=== PATIENT | male | born 1965 | race African-American/Black ===

== ENCOUNTER 2018-10-18 20:44 | Inpatient (IN) | payer SELFPAY ==
[2018-10-18 21:13] LABS: Bilirubin Negative (Negative); Blood, Urine Moderate (Negative); Clarity CLEAR (Clear); Glucose, Urine (Dipstick) >=1000 mg/dL (Negative); Leukocyte Negative (Negative); Nitrite Negative (Negative); Protein, Urine (Dipstick) Trace mg/dL (Neg-Trace); Specific Gravity, Urine 1.028 (1.002-1.036); Urobilinogen 0.2 mg/dL (0.2-1.0)
[2018-10-18 21:15] LABS: Bacteria/HPF None Seen HPF (None Seen); Hyaline Casts/LPF 0-3 HYALINE CAST LPF (0-3 Hyaline); Pathc Cast-AUWi Flag 0.13 (0-2.49); RBC/HPF 0-3 HPF (0-3); Squamous Epithelial None Seen HPF (0-3); WBC/HPF None Seen HPF (0-3)
[2018-10-18] MEDS ORDERED: Acetaminophen 650 MG Suppository ONE (21:17)
[2018-10-18 21:23] LABS: Amphetamine Not Detected (NotDetected); Barbiturates Screen Not Detected (NotDetected); Benzodiazepine Screen Not Detected (NotDetected); Cocaine Metabolite Screen Not Detected (NotDetected); Medtox Control Line Valid? VALID (VALID); Medtox Reader # READER 1; Methadone Not Detected (NotDetected); Methamphetamine Not Detected (NotDetected); Opiate Screen Not Detected (NotDetected); Oxycodone Screen Not Detected (NotDetected); Phencyclidine (PCP) Not Detected (NotDetected); THC/Cannabinoid Screen Not Detected (NotDetected); Tricyclic Screen Not Detected (NotDetected)
--- NOTE | 2018-10-18 21:40 | CT ---
CT brain noncontrast: HISTORY: Syncope and altered mental status in 53-year-old male FINDINGS: There is no evidence of acute intra-axial or extra-axial hemorrhage. There is no midline shift or any other mass effect. There is no extra-axial fluid collection. There is no evidence of obstructive hydrocephalus. Calvarium is intact. IMPRESSION: No acute intracranial findings.
[2018-10-18 21:41] LABS: Acetaminophen Less than 6.0 mcg/mL (10.0-30.0); Alcohol Less than 10 mg/dL (Less than 10); Salicylate Less than 8.0 mg/dL (15.0-30.0)
[2018-10-18 21:42] LABS: Hemoglobin 14.4 g/dL (14.0-18.0); Mean Corpuscular HGB CONC 29.5 g/dL (32.0-36.0); Mean Corpuscular Hemoglobin 24.8 pg (27.0-31.0); Mean Corpuscular Volume 84.1 fL (78.0-98.0); Platelet Count 473 thou/uL (130-400); RBC Distribution Width 16.9 % (11.5-14.5); White Blood Cell (WBC) Count 23.3 thou/uL (4.8-10.8)
[2018-10-18 21:44] LABS: ALT (SGPT) 23 U/L (8-55); AST (SGOT) 13 U/L (5-34); Albumin 3.9 g/dL (3.5-5.0); Alkaline Phosphatase 149 U/L (40-150); Anion Gap 34 mmol/L (10-20); BUN (Urea Nitrogen) 61 mg/dL (8.4-25.7); Bilirubin, Total 0.6 mg/dL (0.2-1.2); CK (CPK) 354 U/L (30-200); Calc. Creatinine Clearance 0 mL/min (70-130); Calcium 11.6 mg/dL (7.8-10.44); Carbon Dioxide 16 mmol/L (22-29); Chloride 99 mmol/L (98-107); Estimated GFR-MDRD 24; Globulin 5.1 g/dL (2.4-3.5); Potassium 4.8 mmol/L (3.5-5.1); Sodium 144 mmol/L (136-145)
[2018-10-18 21:47] LABS: Band 2 % (5-11); Lymphocytes 3 % (21-51); MDiff Complete? YES; Monocytes 3 % (0-10); Myelocyte 1 % (0-0); Neutrophil 91 % (42-75); Platelet Morphology Comment Appears Increased
[2018-10-18] MEDS ORDERED: Piperacillin/Tazobactam 4.5 GM VIAL ONE (21:47)
[2018-10-18 21:48] LABS: Glucose 1150 mg/dL (70-105)
--- NOTE | 2018-10-18 21:54 | RAD ---
CHEST ONE VIEW: 10/18/18 HISTORY: Altered mental status. FINDINGS: Heart size is within normal limits. The lungs are clear. No confluent pneumonia, overt edema, or pleu ral effusion. IMPRESSION: No acute intrathoracic disease. POS: RRE
[2018-10-18 21:59] LABS: CKMB 2.9 ng/mL (0-6.6)
[2018-10-18] MEDS ORDERED: HUMULIN R 100 UNITS in Sodium Chloride 0.9% 100 ML IVPB SCH ×2 (22:00→23:29)
[2018-10-18] MEDS ORDERED: Senokot S 8.6-50 MG TAB PO PRN (23:29)
[2018-10-18] MEDS ORDERED: Loperamide HCl 2 MG CAP PO PRN (23:29)
[2018-10-18] MEDS ORDERED: D5 1/2 NS w/20 mEq KCL 1,000 ML IV PRN (23:29)
[2018-10-18] MEDS ORDERED: Acetaminophen 325 MG TAB PO PRN (23:29)
[2018-10-18] MEDS ORDERED: Sodium Chloride 0.9% 1,000 ML IV PRN ×4 (23:29)
[2018-10-18] MEDS ORDERED: Dextrose 5 %-0.45 % NaCl 1,000 ML IV PRN (23:29)
[2018-10-18] MEDS ORDERED: HYDROcodone/Acetaminophen 5/325 mg Tablet PO PRN (23:29)
[2018-10-18] MEDS ORDERED: Ondansetron ODT 4 MG TAB PO PRN (23:29)
[2018-10-18] MEDS ORDERED: NS 0.9% w/ 20 MEQ KCL 1,000 ML IV PRN ×2 (23:29)
[2018-10-18] MEDS ORDERED: Ondansetron PF 4 MG/2 ML Vial IVP PRN (23:29)
[2018-10-18] MEDS ORDERED: CCU Electrolyte Replacement 1 EACH IVPB ONE (23:29)
[2018-10-18] MEDS ORDERED: Bisacodyl 5 MG TAB PO PRN (23:29)
[2018-10-19] MEDS ORDERED: Potassium Chloride 40 MEQ in Sodium Chloride 0.9% 250 ML 250 ML IVPB PRN (00:02)
[2018-10-19] MEDS ORDERED: Potassium Phosphate 12 MMOL in Sodium Chloride 0.9% 250 ML 250 ML IV PRN (00:02)
[2018-10-19] MEDS ORDERED: PHOS-NAK 1 PKT PACK PO PRN ×2 (00:02)
[2018-10-19] MEDS ORDERED: Potassium Chloride 20 MEQ TAB PO PRN (00:02)
[2018-10-19] MEDS ORDERED: Potassium Chloride 40 MEQ in Premix Bag 1 BAG IVPB PRN (00:02)
[2018-10-19] MEDS ORDERED: Magnesium 2 GM/50 ML 2 GM in Premix Bag 1 BAG IVPB PRN (00:02)
[2018-10-19] MEDS ORDERED: Potassium Phosphate 15 MMOL in Sodium Chloride 0.9% 250 ML 250 ML IV PRN (00:02)
[2018-10-19] MEDS ORDERED: Potassium Phosphate 9 MMOL in Sodium Chloride 0.9% 100 ML IVPB PRN (00:02)
[2018-10-19] MEDS ORDERED: Magnesium Oxide 400 MG TAB PO PRN ×2 (00:02)
[2018-10-19 00:08] LABS: Anion Gap 33 mmol/L (10-20); BUN (Urea Nitrogen) 54 mg/dL (8.4-25.7); Calc. Creatinine Clearance 0 mL/min (70-130); Calcium 10.9 mg/dL (7.8-10.44); Carbon Dioxide 13 mmol/L (22-29); Chloride 112 mmol/L (98-107); Estimated GFR-MDRD 30; Sodium 153 mmol/L (136-145)
--- NOTE | 2018-10-19 00:11 | HP ---
PRIMARY CARE PHYSICIAN: [facility]. REASON FOR ADMISSION: Acute metabolic encephalopathy, DKA, acute kidney failure. HISTORY OF PRESENT ILLNESS: A 53-year-old male, who is completely encephalopathic at this point. He is only oriented x1 with his name and he cannot provide any history. As per patient's sister, he was found at home altered and he had episode of syncope. He was last seen normal on Tuesday. Subsequently, he became very combative. The patient does have cancer over the right arm. Today in the emergency room, he is found with severe hyperglycemia, acute kidney failure, encephalopathy, and sepsis type of picture and that is why he was given antibiotic therapy in the emergency room. He was given IV fluid as per protocol and subsequently insulin drip was started and the patient was able to make urine. When I saw in the emergency room at that point, the patient was restrained for agitation as well as a Hamilton catheter was placed. The patient was only able to open his eye with name, but he was not able to provide any more history, so most of the history obtained from the emergency room record and we do not have any previous records for this particular patient in our hospital system. REVIEW OF SYSTEMS: All review of systems tried to review with the patient, but unable to review at this point because of altered mental status. PAST MEDICAL HISTORY: Unable to review at this point, but seems like the patient has underlying diabetes as well as chronic cancer on the right arm.. PAST SURGICAL HISTORY: Unable to review at this point because of encephalopathy. PAST PSYCHIATRIC HISTORY: Unable to review at this point because of encephalopathy. ALLERGIES: NO KNOWN DRUG ALLERGY. CURRENT HOME MEDICATION: Unable to review at this point because the patient is not able to provide any history as well as does not have any medication. FAMILY HISTORY: Unable to review at this point because of altered mental status. EMERGENCY ROOM COURSE: The patient has received almost 3 L of IV fluids, vancomycin, Zosyn, and insulin drip is started. He is given Tylenol rectally. SOCIAL HISTORY: Unable to obtain as pt is disoriented. PHYSICAL EXAMINATION: VITAL SIGNS: On arrival, blood pressure 111/83, pulse 152, respiratory rate 41, saturation 95% on room air. Weight 68 kg. Temperature 100.4. GENERAL: The patient is completely encephalopathic, arousable with name only. HEENT: Head, normocephalic, atraumatic. Eyes, pupils round, reactive to light, shrunken eyeball. ENT, dry mucous membranes. No oral lesion. No pharyngeal erythema. No exudate. NECK: Supple. No JVD. No thyromegaly. No carotid bruit. No jugular venous distention. LUNGS: Clear to auscultation without any rhonchi or rales. CARDIAC: S1, S2 appears regular, tachycardia. No murmur. No gallop. No rub. ABDOMEN: Soft, bowel sounds present. Nontender. Nondistended. No organomegaly. No mass. No suprapubic tenderness. BACK: Unremarkable. No CVA tenderness. EXTREMITIES: Upper extremities, the patient does have a fungating mass on the right upper arm. Lower extremities, no edema. Good distal pulsation. SKIN: Dry skin. HEMATOLOGICAL: No lymphadenopathy. PSYCHIATRIC: Unable to assess at this point. NEUROLOGIC: The patient is moving all four limbs, but the patient is completely confused and disoriented. SIGNIFICANT LABORATORY DATA: EKG showing sinus tachycardia. Chest x-ray based on my review, no acute cardiopulmonary process. CBC; WBC 23.3, hemoglobin 14.8, platelet 473 with bandemia. BMP; sodium 144, potassium 4.8, chloride 99, carbon dioxide 16, anion gap 34, BUN 61, creatinine 3.31, glucose 1150, calcium 11.6, lactic acid 3.5. LFT; AST 13, ALT 23, alkaline phosphatase 149, albumin 3.9. CK 354, CK-MB 2.9, troponin 0.034. Urinalysis, glucosuria, ketonuria, and hematuria. Urine drug screen negative. Serum drug screen negative. CT brain based on my review, no acute intracranial process. Chest x-ray based on my review, no acute cardiopulmonary process. ASSESSMENT AND PLAN: 1. Diabetic ketoacidosis. The patient has severe hyperglycemia with anion gap acidosis. We will check serum ketones. The patient will be admitted to [facility] and managed as DKA protocol treatment with insulin drips. The patient has received enough IV fluid in the emergency room. We will continue baseline IV fluid and replace electrolytes as needed. When blood sugar drops to below 250, at that point, IV fluid will be changed to half normal saline with dextrose with or without potassium along with insulin drip until ketones disappear and anion gap close. At that point, we will overlap with basal and prandial insulin. We will repeat labs tomorrow including CBC, CMP, electrolytes, and ketones. We will monitor Accu-Chek every hourly. 2. Acute kidney failure, likely due to osmotic diuresis and dehydration as well as sepsis. The patient has received IV fluid. We will repeat BMP tomorrow. Avoid nephrotoxic agent. Consult Nephrology. 3. Anion gap metabolic acidosis due to combined etiology of diabetic ketoacidosis as well as get acute kidney failure. 4. Lactic acidosis, likely due to sepsis. We will repeat lactic acid tomorrow. The patient will be kept on antibiotic therapy. 5. Sepsis with acute organ dysfunction. We will continue with vancomycin and Zosyn as per renally adjusted dose. 6. Acute metabolic and septic encephalopathy. The patient's CT brain is negative, likely due to currently metabolic etiology as well as subsequent sepsis. The patient will be given IV fluid to correct diabetic ketoacidosis, acute kidney failure, and treat underlying sepsis. 7. Demand ischemia of myocardium secondary to non-ST elevation myocardial infarction type 2. We will do serial cardiac enzyme and monitor on telemetry. 8. Fungating mass on the right upper extremity. We will consult Orthopedic tomorrow for evaluation and opinion. 9. Deep venous thrombosis prophylaxis, heparin 5000 units subcu twice daily. 10. Gastrointestinal prophylaxis, Pepcid 20 mg p.o. or IV daily. CODE STATUS: The patient is full code. The patient does not have any surrogate decision maker. DISPOSITION PLAN: Based on clinical course. We are expecting the patient's stay in the hospital more than 2 midnights. Job ID: [id number] MTDD
[2018-10-19 00:21] LABS: Glucose 881 mg/dL (70-105)
[2018-10-19 01:13] LABS: Magnesium 3.3 mg/dL (1.6-2.6)
[2018-10-19 01:17] LABS: Troponin I 0.044 ng/mL (< 0.028)
[2018-10-19 01:45] LABS: Phosphorus 1.4 mg/dL (2.3-4.7)
[2018-10-19 02:46] LABS: Lactic Acid 2.8 mmol/L (0.5-2.2)
[2018-10-19 03:54] LABS: Hemoglobin 14.9 g/dL (14.0-18.0); Mean Corpuscular HGB CONC 32.1 g/dL (32.0-36.0); Mean Corpuscular Hemoglobin 25.2 pg (27.0-31.0); Mean Corpuscular Volume 78.5 fL (78.0-98.0); Mean Platelet Volume 8.7 fL (7.4-10.4); Platelet Count 451 thou/uL (130-400); RBC Distribution Width 16.6 % (11.5-14.5); White Blood Cell (WBC) Count 28.4 thou/uL (4.8-10.8)
[2018-10-19 04:08] LABS: Lactic Acid 2.8 mmol/L (0.5-2.2)
[2018-10-19 04:11] LABS: Phosphorus 1.4 mg/dL (2.3-4.7)
[2018-10-19 04:12] LABS: ALT (SGPT) 23 U/L (8-55); AST (SGOT) 19 U/L (5-34); Albumin 3.8 g/dL (3.5-5.0); Alkaline Phosphatase 133 U/L (40-150); Anion Gap 25 mmol/L (10-20); BUN (Urea Nitrogen) 45 mg/dL (8.4-25.7); Bilirubin, Total 0.4 mg/dL (0.2-1.2); Calc. Creatinine Clearance 0 mL/min (70-130); Calcium 11.6 mg/dL (7.8-10.44); Carbon Dioxide 18 mmol/L (22-29); Chloride 122 mmol/L (98-107); Estimated GFR-MDRD 36; Globulin 5.5 g/dL (2.4-3.5); Magnesium 3.3 mg/dL (1.6-2.6); Potassium 5.5 mmol/L (3.5-5.1); Protein, Total 9.3 g/dL (6.0-8.3); Sodium 159 mmol/L (136-145)
[2018-10-19 04:14] LABS: Glucose 684 mg/dL (70-105)
[2018-10-19 04:16] LABS: Troponin I 0.057 ng/mL (< 0.028)
[2018-10-19 04:56] LABS: Band 3 % (5-11); Lymphocytes 8 % (21-51); MDiff Complete? YES; Monocytes 4 % (0-10); Neutrophil 85 % (42-75)
[2018-10-19] MEDS: Piperacillin/Tazobactam 3.375 GM in Sodium Chloride 0.9% 100 ML IVPB SCH ×3 (06:28→17:41)
[2018-10-19] MEDS ORDERED: Prevnar 13-Val Conj/PF 0.5 ML SYRINGE IM ONE (08:00)
[2018-10-19 08:17] LABS: Calcium 11.1 mg/dL (7.8-10.44); Chloride 127 mmol/L (98-107); Potassium 4.2 mmol/L (3.5-5.1); Sodium 163 mmol/L (136-145)
[2018-10-19 08:21] LABS: BUN (Urea Nitrogen) 41 mg/dL (8.4-25.7); Calc. Creatinine Clearance 39 mL/min (70-130); Carbon Dioxide 16 mmol/L (22-29); Estimated GFR-MDRD 40; Glucose 548 mg/dL (70-105)
[2018-10-19 08:45] LABS: Anion Gap 24 mmol/L (10-20)
[2018-10-19] MEDS: Heparin 5,000 UNITS/ML VIAL SC SCH ×2 (09:51→20:25)
[2018-10-19] MEDS: Vancomycin HCl 1 GM in Premix Bag 1 BAG IVPB SCH (09:51)
[2018-10-19] MEDS: Famotidine/PF 20 mg/2ml Vial SLOW IVP SCH (09:52)
[2018-10-19] MEDS: Famotidine 20 MG TAB PO SCH (10:43)
[2018-10-19] MEDS ORDERED: Sodium Chloride 0.45% 1,000 ML IV SCH (10:45)
--- NOTE | 2018-10-19 11:28 | PDOC.PN ---
- Subjective Encounter Start Date: 10/19/18 Encounter Start Time: 11:26 Patient seen and examined, no family at bedside. - Objective Resuscitation Status - Order Detail: 10/18/18 23:04 Resuscitation Status Routine Resuscitation Status: FULL: Full Resuscitation Vital Signs & Weight: Vital Signs (12 hours) Temp Pulse Resp BP Pulse Ox 10/19/18 10:38 97.8 F 10/19/18 07:27 98.0 F 10/19/18 05:30 96 10/19/18 05:00 99.9 F H 132 H 30 H 115/83 25 L 10/19/18 04:40 99.7 F H 132 H 32 H 109/79 96 Weight Weight 146 lb 11.2 oz Most Recent Monitor Data Heart Rate from ECG 129 NIBP 108/81 NIBP BP-Mean 90 Respiration from ECG 31 SpO2 97 I&O: 10/18/18 10/19/18 10/20/18 06:59 06:59 06:59 Intake Total 375 1080 Output Total 450 505 Balance -75 575 Result Diagrams: 10/19/18 03:35 10/19/18 07:13 Additional Labs: Accuchecks 10/19/18 10/19/18 10/19/18 11:05 09:59 09:36 POC Glucose 379 H 416 H 376 H 10/19/18 10/19/18 10/19/18 08:28 07:16 06:10 POC Glucose 425 H 462 H 534 H 10/19/18 10/19/18 04:54 03:43 POC Glucose 537 H Greater than 550 H* Phys Exam - Physical Examination Constitutional: NAD HEENT: PERRLA dry membranes Neck: no nodes, no JVD Respiratory: no wheezing, no rales, no rhonchi Cardiovascular: RRR, no rub systolic murmur faint Gastrointestinal: soft, non-tender, no distention, positive bowel sounds Musculoskeletal: no edema, pulses present RUE cancerous lesion on arm Dx/Plan (1) DKA (diabetic ketoacidoses) Code(s): E13.10 - OTH DIABETES MELLITUS WITH KETOACIDOSIS WITHOUT COMA Status : Acute (2) Hypernatremia Code(s): E87.0 - HYPEROSMOLALITY AND HYPERNATREMIA Status: Acute (3) Hyperchloremia Code(s): E87.8 - OTH DISORDERS OF ELECTROLYTE AND FLUID BALANCE, NEC Status: Acute (4) High anion gap metabolic acidosis Code(s): E87.2 - ACIDOSIS Status: Acute (5) Skin cancer Code(s): C44.90 - UNSPECIFIED MALIGNANT NEOPLASM OF SKIN, UNSPECIFIED Status: Acute - Plan * DC NS and change to 1/2NS, case d/w ICU team, can also switch to D5W once sugar is a bit better controlled * cont with insulin drip per protocol * BMP q6hrs for now * no family at bedside * plan d/w nurse as well as ICU team, appreciate high lift mule operator input
[2018-10-19 12:58] LABS: Anion Gap 14 mmol/L (10-20); BUN (Urea Nitrogen) 37 mg/dL (8.4-25.7); Calc. Creatinine Clearance 46 mL/min (70-130); Calcium 10.9 mg/dL (7.8-10.44); Carbon Dioxide 26 mmol/L (22-29); Chloride 130 mmol/L (98-107); Estimated GFR-MDRD 49; Glucose 397 mg/dL (70-105); Potassium 3.7 mmol/L (3.5-5.1); Sodium 166 mmol/L (136-145)
[2018-10-19] MEDS ORDERED: Potassium Chloride 40 MEQ in Sodium Chloride 0.9% 250 ML 250 ML IVPB SCH (15:30)
[2018-10-19] MEDS: Sodium Chloride 0.45% 1,000 ML IV SCH ×2 (15:50→20:56)
[2018-10-19] MEDS: Dextrose 5% in Water 1,000 ML IV SCH ×2 (15:50→20:56)
--- NOTE | 2018-10-19 15:51 | CON ---
DATE OF CONSULTATION: 10/19/2018 SERVICE: Pulmonary Medicine. REASON FOR CONSULTATION: CU patient. HISTORY OF PRESENT ILLNESS: The patient is a 53-year-old male with past medical history significant for diabetes as well as arm cancer. He presented to the hospital because of altered mentation. He had acute kidney failure. He is unable to provide any additional elements of the history. Overnight, he was discovered to have a blood sugar of 1100, and was profoundly dehydrated. He was given multiple liters of fluid, and put on half-normal saline. His blood sugars have dropped fairly well. He is on an insulin drip. He is becoming a little bit more attentive, but remains fairly somnolent. He cannot provide any additional elements of the history at this point. It is not clear what if anything has been done about the right arm cancer. PAST MEDICAL HISTORY: 1. Type 2 diabetes mellitus, unclear if this is new. 2. Arm cancer. PAST SURGICAL HISTORY: Unknown. SOCIAL HISTORY: Unknown. FAMILY HISTORY: Unknown. ALLERGIES: UNKNOWN. MEDICATIONS: List of his inpatient medications was reviewed. No specific updates were made at this time. REVIEW OF SYSTEMS: This cannot be obtained as the patient has fairly significant encephalopathy associated with these electrolyte derangements. PHYSICAL EXAMINATION: VITAL SIGNS: Afebrile. He has a T-max of 99.9. Pulse 129, blood pressure 108/ 81, respirations 31, and saturation 97% on room air. GENERAL: The patient is awake and alert, in no apparent distress. LUNGS: Decent air entry without any prolonged expiratory phase or wheezing present. HEART: Normal rate, regular. ABDOMEN: Soft, nontender, and nondistended. Bowel sounds positive. MUSCULOSKELETAL: No cyanosis or clubbing. No pitting in the bilateral lower extremities. NEUROLOGIC: Grossly nonfocal. LABORATORY DATA: Sodium 166 and trending upward associated with correction of glucose. His glucose is downtrending from 1150 to 397. Creatinine has improved from 3.31 to 1.78, BUN 37. Calcium is improved from 11.6 to 10.9. Phosphorus 1.4, lactate 2.8. Liver function studies are unremarkable. Troponin 0.057 and up trending gently. Urinalysis is positive for glycosuria, ketonuria, and blood in the urine despite negative rbc's. Urine drug screen is negative. Beta- hydroxybutyrate is downtrending to 5.59. Blood cultures x2 are unremarkable. IMAGIN. CT of the brain demonstrates no acute intracranial abnormality. 2. Chest x-ray demonstrates no acute cardiopulmonary abnormality. ASSESSMENT: 1. Metabolic encephalopathy. 2. 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 3. Acute kidney injury, improving. 4. Suspected cancer of the right arm. DISCUSSION AND PLAN: We will continue to hydrate the patient. I will add D5 water for a period of 2 to 6 hours. Once the sodium is moving gently into the right direction, we will stop the D5 water again. I am not interested in correcting the sodium too terribly quickly. He remains profoundly dehydrated. We will drop insulin down to 4 units/hour. Once he wakes up a little bit, we will discuss what has been done for this arm lesion. If that has yet to be worked up, we can initiate those studies. Pulmonary/Critical Care will continue to follow along while the patient remains in the hospital. 70 minutes have been devoted to this patient in various activities. I personally reviewed all imaging studies and laboratory data noted within this document. For fifty percent of this time, I was interacting with the patient at the bedside or coordinating care with the care team. For the remainder of the time I was immediately available to the patient in the hospital unit. Job ID: [id number] MTDD
[2018-10-19 16:40] LABS: Magnesium 2.4 mg/dL (1.6-2.6)
[2018-10-19 16:45] LABS: Anion Gap 15 mmol/L (10-20); BUN (Urea Nitrogen) 33 mg/dL (8.4-25.7); Calc. Creatinine Clearance 51 mL/min (70-130); Carbon Dioxide 25 mmol/L (22-29); Chloride 132 mmol/L (98-107); Estimated GFR-MDRD 55; Glucose 318 mg/dL (70-105); Phosphorus 1.5 mg/dL (2.3-4.7); Potassium 3.7 mmol/L (3.5-5.1); Sodium 168 mmol/L (136-145)
[2018-10-19] MEDS ORDERED: Potassium Phosphate 30 MMOL in Sodium Chloride 0.9% 500 ML IVPB SCH (17:30)
--- NOTE | 2018-10-19 22:20 | CON ---
DATE OF CONSULTATION: 10/19/2018 CONSULTING PHYSICIAN: Dr. Case. REASON FOR CONSULT: Acute kidney injury. REASON FOR ADMISSION: Altered mentation. HISTORY OF PRESENT ILLNESS: A 53-year-old male with history of type 2 diabetes, came to the hospital with altered mentation and the patient is not able to give good history. Most of the history was obtained from review of the records, he remains confused. PAST MEDICAL HISTORY: Not obtained at this time. PAST SURGICAL HISTORY: Not available. ALLERGIES: NO KNOWN DRUG ALLERGIES. HOME MEDICATIONS: Not available. FAMILY HISTORY: Not available. SOCIAL HISTORY: Not available. REVIEW OF SYSTEMS: Could not be obtained due to altered mentation. PHYSICAL EXAMINATION: GENERAL: The patient is a thin-built male, confused, not able to give a good history. VITAL SIGNS: Temperature 97.8, pulse is 132, respiratory rate is 15, blood pressure 108/81. HEENT: Atraumatic, normocephalic. NECK: Supple. CV: S1 and S2 heard. Rate and rhythm regular. RESPIRATORY: Clear. GI: Abdomen is soft. MUSCULOSKELETAL: No edema. DERMATOLOGIC: No skin rash. NEUROLOGIC: Alert and awake. LABORATORY DATA: Sodium is 166, chloride is 130, BUN . ASSESSMENT AND PLAN: 1. Acute kidney injury. Creatinine is better, elevated BUN. 2. Hypernatremia. Agree with free water. 3. Hyperchloremia. 4. Altered mentation. 5. . 6. Leukocytosis, rule out infection. Continue free water. Renal function is getting better. Monitor sodium closely. We will follow. Thank you for the consult. Job ID: [id number]
[2018-10-19 22:36] LABS: Anion Gap 17 mmol/L (10-20); BUN (Urea Nitrogen) 27 mg/dL (8.4-25.7); Calc. Creatinine Clearance 56 mL/min (70-130); Calcium 9.8 mg/dL (7.8-10.44); Carbon Dioxide 24 mmol/L (22-29); Chloride 131 mmol/L (98-107); Estimated GFR-MDRD 61; Glucose 278 mg/dL (70-105); Potassium 4.6 mmol/L (3.5-5.1); Sodium 167 mmol/L (136-145)
[2018-10-20] MEDS: Piperacillin/Tazobactam 3.375 GM in Sodium Chloride 0.9% 100 ML IVPB SCH ×5 (00:10→23:39)
[2018-10-20] MEDS: Sodium Chloride 0.45% 1,000 ML IV SCH ×4 (03:47→23:43)
[2018-10-20] MEDS: Dextrose 5% in Water 1,000 ML IV SCH (03:47)
[2018-10-20 05:19] LABS: Anion Gap 11 mmol/L (10-20); BUN (Urea Nitrogen) 22 mg/dL (8.4-25.7); Calc. Creatinine Clearance 72 mL/min (70-130); Calcium 9.1 mg/dL (7.8-10.44); Carbon Dioxide 26 mmol/L (22-29); Estimated GFR-MDRD 83; Glucose 237 mg/dL (70-105); Potassium 3.7 mmol/L (3.5-5.1); Sodium 159 mmol/L (136-145)
[2018-10-20 05:21] LABS: Chloride 126 mmol/L (98-107)
[2018-10-20] MEDS: Famotidine 20 MG TAB PO SCH (09:05)
[2018-10-20] MEDS: Vancomycin HCl 1 GM in Premix Bag 1 BAG IVPB SCH ×2 (09:05→21:07)
[2018-10-20] MEDS: Heparin 5,000 UNITS/ML VIAL SC SCH ×2 (09:05→21:08)
[2018-10-20] MEDS: Famotidine/PF 20 mg/2ml Vial SLOW IVP SCH (09:06)
[2018-10-20 09:24] LABS: Vancomycin, Trough 6.6 ug/mL
[2018-10-20 10:27] LABS: Anion Gap 13 mmol/L (10-20); BUN (Urea Nitrogen) 19 mg/dL (8.4-25.7); Calc. Creatinine Clearance 84 mL/min (70-130); Calcium 8.9 mg/dL (7.8-10.44); Carbon Dioxide 25 mmol/L (22-29); Chloride 123 mmol/L (98-107); Estimated GFR-MDRD 90; Glucose 174 mg/dL (70-105); Potassium 3.6 mmol/L (3.5-5.1); Sodium 157 mmol/L (136-145)
[2018-10-20] MEDS ORDERED: Dextrose 5% in Water 1,000 ML IV PRN ×2 (10:34→20:34)
[2018-10-20] MEDS ORDERED: Dextrose 50% Abboject 50 ML SYRINGE SLOW IVP PRN (10:34)
[2018-10-20] MEDS ORDERED: Dextrose 5% in Water 1,000 ML IV SCH (10:37)
[2018-10-20 10:45] VITALS: BMI 19.8
[2018-10-20] MEDS ORDERED: Potassium Chloride 20 MEQ TAB PO SCH (10:45)
[2018-10-20] MEDS ORDERED: Insulin Glargine 20 UNITS in Pre-Filled Syringe 1 EACH SC SCH (10:45)
--- NOTE | 2018-10-20 10:53 | PRG ---
DATE OF SERVICE: 10/20/2018 INTERVAL HISTORY: The patient is awake and alert this morning. He is talking on the phone. He denies any current chest pain, fevers, chills, nausea, or vomiting. Otherwise, there has been no interval change to his condition. His heart rate is way down. Mentation rios, things are drastically improved. PHYSICAL EXAMINATION: VITAL SIGNS: Afebrile, pulse 129, blood pressure 108/81, respirations are 15, and saturation 97% on room air. GENERAL: The patient is awake and alert, in no apparent distress. LUNGS: Excellent air entry. There is no prolonged expiratory phase or wheezing present. HEART: Normal rate and regular. ABDOMEN: Soft, nontender, nondistended. Bowel sounds are positive. MUSCULOSKELETAL: No cyanosis or clubbing. There is no pitting or tenting today. : No Hamilton. UROLOGIC: Grossly nonfocal. LABORATORY DATA: Beta-hydroxybutyrate acid has dropped to 5.59. Anion gap is closed, bicarb 25. Potassium 3.6, sodium is beautifully downtrending to 157. Creatinine 1.05 as returned to the normal range. Cultures are only growing coag-negative Staph in 06/21. Urine culture remains negative. ASSESSMENT: 1. Metabolic encephalopathy. 2. 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 3. Acute kidney injury, resolved. 4. Suspected cancer in the right arm. DISCUSSION AND PLAN: The patient's gap is closed, his mentation is improved, and he has gotten appetite. We will convert him off the insulin drip onto subcu insulin. Potassium will be replaced today. We will check a magnesium with tomorrow morning's laboratories. He can be transitioned out of the IMCU. Once he leaves here, he will have no further requirements for Pulmonary/Critical Care opinion, and we will sign off. If this arm lesion has not been investigated, biopsy should be obtained while he is in-house. Job ID: [id number]
[2018-10-20] MEDS: HumaLOG 300 UNITS/3 ML VIAL SC SCH ×2 (11:25→17:21)
--- NOTE | 2018-10-20 12:14 | PDOC.PN ---
- Subjective Encounter Start Date: 10/20/18 Encounter Start Time: 12:12 Patient seen and examined, no new issues or complaints, all questions answered. - Objective Resuscitation Status - Order Detail: 10/18/18 23:04 Resuscitation Status Routine Resuscitation Status: FULL: Full Resuscitation Vital Signs & Weight: Vital Signs (12 hours) Temp 10/20/18 10:43 98.0 F 10/20/18 07:17 98.3 F 10/20/18 04:01 97.6 F Weight Admit Weight 146 lb 11.2 oz Weight 159 lb 1.6 oz Most Recent Monitor Data Heart Rate from ECG 87 NIBP 110/81 NIBP BP-Mean 90 Respiration from ECG 26 SpO2 97 I&O: 10/19/18 10/20/18 10/21/18 06:59 06:59 06:59 Intake Total 375 8025.0 1988 Output Total 450 1940 375 Balance -75 6085.0 1613 Result Diagrams: 10/19/18 03:35 10/20/18 08:13 Additional Labs: Accuchecks 10/20/18 10/20/18 10/20/18 11:08 09:56 08:55 POC Glucose 336 H 316 H 210 H 10/20/18 10/20/18 10/20/18 07:58 06:58 06:10 POC Glucose 208 H 164 H 191 H 10/20/18 10/20/18 10/20/18 05:08 04:11 03:06 POC Glucose 241 H 301 H 248 H 10/20/18 10/20/18 10/20/18 02:31 01:12 00:10 POC Glucose 265 H 269 H 301 H 10/19/18 10/19/18 10/19/18 23:15 22:06 21:12 POC Glucose 455 H 290 H 336 H 10/19/18 10/19/18 10/19/18 20:12 19:22 18:40 POC Glucose 328 H 331 H 273 H 10/19/18 10/19/18 10/19/18 17:40 16:05 14:55 POC Glucose 300 H 338 H 325 H 10/19/18 10/19/18 10/19/18 14:08 13:08 02:48 POC Glucose 309 H 308 H Greater than 550 H* 10/19/18 10/19/18 10/18/18 01:47 00:44 23:40 POC Glucose Greater than 550 H* Greater than 550 H* Greater than 550 H* Phys Exam - Physical Examination Constitutional: NAD HEENT: PERRLA, moist MMs, sclera anicteric Neck: no nodes, no JVD, supple Respiratory: no wheezing, no rales, no rhonchi Cardiovascular: RRR, no significant murmur, no rub Gastrointestinal: soft, non-tender, no distention, positive bowel sounds Musculoskeletal: no edema (RUE skin cancer lesion), pulses present Dx/Plan (1) DKA (diabetic ketoacidoses) Code(s): E13.10 - OTH DIABETES MELLITUS WITH KETOACIDOSIS WITHOUT COMA Status : Acute (2) Hypernatremia Code(s): E87.0 - HYPEROSMOLALITY AND HYPERNATREMIA Status: Acute (3) Hyperchloremia Code(s): E87.8 - OTH DISORDERS OF ELECTROLYTE AND FLUID BALANCE, NEC Status: Acute (4) High anion gap metabolic acidosis Code(s): E87.2 - ACIDOSIS Status: Acute (5) Skin cancer Code(s): C44.90 - UNSPECIFIED MALIGNANT NEOPLASM OF SKIN, UNSPECIFIED Status: Acute - Plan * patient doing well, stop drip * basal bolus insulin given, ISS to be continued as well * cont IVFs for now givne hyponatremia * start diet * ok to transfer to med/sx floor * possible DC in 24-48hrs depending on patient clinical course * appreciate ICU input * states he goes to [facility] for all of his medical needs * case and plan d/w patient at length, he understood and agreed with this plan
[2018-10-20 12:23] LABS: Anion Gap 15 mmol/L (10-20); BUN (Urea Nitrogen) 18 mg/dL (8.4-25.7); Calc. Creatinine Clearance 74 mL/min (70-130); Calcium 8.7 mg/dL (7.8-10.44); Carbon Dioxide 23 mmol/L (22-29); Chloride 115 mmol/L (98-107); Estimated GFR-MDRD 78; Glucose 334 mg/dL (70-105); Potassium 3.6 mmol/L (3.5-5.1); Sodium 149 mmol/L (136-145)
--- NOTE | 2018-10-20 14:03 | PRG ---
DATE OF SERVICE: 10/20/2018 SUBJECTIVE: A 53-year-old gentleman, being seen for acute kidney injury. The patient denied nausea, vomiting, or chest pain. OBJECTIVE: CONSTITUTIONAL: The patient is awake and alert. VITAL SIGNS: Pulse 75, breathing 16, blood pressure 110/81. GENERAL APPEARANCE AND MENTAL STATUS: Fair. HEAD/NECK: Normocephalic. Atraumatic. EYES: EOMI. No deformity. EARS: Clear. No ulcers. NOSE: Intact. No lesions. MOUTH: Clear. No discharge. THROAT: Clear. No exudate. LUNGS: Clear. No crackles. CARDIAC: S1, S2. No rub. ABDOMEN: Benign. Bowel sounds positive. GENITALIA/RECTUM: Hamilton absent. BACK/EXTREMITIES: Edema 0+. NEUROLOGICAL: Alert and motor intact. SKIN: LYMPHATICS: LABORATORY DATA: Labs reviewed. ASSESSMENT: 1. Stage 2 chronic kidney disease, stable. 2. Hypertension, stable. 3. Hypernatremia. The patient's sodium has corrected too fast. I would recommend stopping the D5W. Job ID: [id number]
[2018-10-20] MEDS: HumaLOG 300 UNITS/3 ML VIAL SC PRN ×2 (17:22→21:06)
[2018-10-20 17:47] LABS: Anion Gap 14 mmol/L (10-20); BUN (Urea Nitrogen) 18 mg/dL (8.4-25.7); Calc. Creatinine Clearance 79 mL/min (70-130); Calcium 8.3 mg/dL (7.8-10.44); Carbon Dioxide 19 mmol/L (22-29); Chloride 115 mmol/L (98-107); Estimated GFR-MDRD 83; Glucose 404 mg/dL (70-105); Potassium 4.1 mmol/L (3.5-5.1); Sodium 144 mmol/L (136-145)
[2018-10-20] MEDS: Morphine 2 MG/ML SYRINGE SLOW IVP PRN (18:36)
--- NOTE | 2018-10-20 20:40 | PDOC.EVN ---
Event Note - Event Note Event Note: Called by RN for pt's blood sugar of 497. Last meal 3 hours ago and pt received 11 units of humalog. Did receive 20 units of lantus earlier today, and DM is a new diagnosis. In addition, pt is not well controlled on 2 mg IV morphine prn. AT home pt takes MS contin 15 mg BID, and Vass 10/325 q6h prn. Will order the followin. Home meds - MS contin 15 mg bid, and Vass 10/325 q6h prn 2. Bedtime correction scale and 1 additional dose of lantus 10 units. To recheck blood sugar at midnight and call physician chaperon. Looking at the trend today, increasing with each meal - anticipate the mealtime scheduled coverage will need to be adjusted for tomorrow. No questions or further needs at end of conversation.
[2018-10-20] MEDS ORDERED: Insulin Glargine 10 UNITS in Pre-Filled Syringe 1 EACH SC SCH (20:45)
[2018-10-20] MEDS: Morphine ER 15 MG TAB PO SCH (21:07)
[2018-10-20 21:24] LABS: Anion Gap 12 mmol/L (10-20); BUN (Urea Nitrogen) 19 mg/dL (8.4-25.7); Calc. Creatinine Clearance 67 mL/min (70-130); Calcium 8.7 mg/dL (7.8-10.44); Carbon Dioxide 25 mmol/L (22-29); Chloride 111 mmol/L (98-107); Estimated GFR-MDRD 69; Glucose 504 mg/dL (70-105); Potassium 4.1 mmol/L (3.5-5.1); Sodium 144 mmol/L (136-145)
[2018-10-21] MEDS: HYDROcodone/Acetaminophen 10/325 mg Tablet PO PRN ×3 (01:38→20:18)
[2018-10-21] MEDS: Piperacillin/Tazobactam 3.375 GM in Sodium Chloride 0.9% 100 ML IVPB SCH ×3 (05:47→17:35)
[2018-10-21] MEDS: Sodium Chloride 0.45% 1,000 ML IV SCH ×2 (05:51→17:43)
[2018-10-21] MEDS: Morphine 2 MG/ML SYRINGE SLOW IVP PRN (05:52)
[2018-10-21] MEDS ORDERED: HumaLOG 300 UNITS/3 ML VIAL SC SCH (06:30)
[2018-10-21] MEDS: HumaLOG 300 UNITS/3 ML VIAL SC PRN ×4 (06:45→20:17)
[2018-10-21] MEDS: Heparin 5,000 UNITS/ML VIAL SC SCH ×2 (08:24→20:17)
[2018-10-21] MEDS: Famotidine 20 MG TAB PO SCH (08:24)
[2018-10-21] MEDS: HumaLOG 300 UNITS/3 ML VIAL SC SCH ×3 (08:24→17:45)
[2018-10-21] MEDS: Morphine ER 15 MG TAB PO SCH ×2 (08:25→20:18)
[2018-10-21] MEDS: Vancomycin HCl 1 GM in Premix Bag 1 BAG IVPB SCH ×2 (08:26→21:20)
[2018-10-21] MEDS ORDERED: Insulin Glargine 20 UNITS in Pre-Filled Syringe 1 EACH SC SCH (09:00)
[2018-10-21 09:14] LABS: #Lymphocytes 2.3 thou/uL (1.20-3.40); #Monocytes 0.5 thou/uL (0.11-0.59); #Neutrophils 11.5 thou/uL (1.40-6.50); %Basophils 0.2 % (0.0-1.0); %Eosinophils 0.3 % (0.0-10.0); %Lymphocytes 16.2 % (21.0-51.0); %Monocytes 3.3 % (0.0-10.0); Hemoglobin 11.4 g/dL (14.0-18.0); Mean Corpuscular HGB CONC 31.9 g/dL (32.0-36.0); Mean Corpuscular Hemoglobin 25.2 pg (27.0-31.0); Mean Corpuscular Volume 78.8 fL (78.0-98.0); Platelet Count 121 thou/uL (130-400); Red Blood Cell (RBC) Count 4.53 mill/uL (4.70-6.10); White Blood Cell (WBC) Count 14.3 thou/uL (4.8-10.8)
[2018-10-21 09:31] LABS: Anion Gap 11 mmol/L (10-20); BUN (Urea Nitrogen) 15 mg/dL (8.4-25.7); Calc. Creatinine Clearance 85 mL/min (70-130); Calcium 8.9 mg/dL (7.8-10.44); Carbon Dioxide 27 mmol/L (22-29); Chloride 112 mmol/L (98-107); Estimated GFR-MDRD Greater than 90; Glucose 401 mg/dL (70-105); Magnesium 1.6 mg/dL (1.6-2.6); Potassium 3.9 mmol/L (3.5-5.1); Sodium 146 mmol/L (136-145)
[2018-10-21 09:33] LABS: Magnesium 1.7 mg/dL (1.6-2.6); Phosphorus 2.4 mg/dL (2.3-4.7)
[2018-10-21] MEDS: Insulin Glargine 25 UNITS in Pre-Filled Syringe 1 EACH SC SCH (10:03)
--- NOTE | 2018-10-21 10:45 | PDOC.PN ---
- Subjective Encounter Start Date: 10/21/18 Encounter Start Time: 10:44 Patient seen and examined, no new issues or complaints. No family at bedside, all questions answered. - Objective Resuscitation Status - Order Detail: 10/18/18 23:04 Resuscitation Status Routine Resuscitation Status: FULL: Full Resuscitation Vital Signs & Weight: Vital Signs (12 hours) Temp Pulse Resp BP BP Pulse Ox 10/21/18 07:17 98.5 F 74 16 103/58 L 98 10/21/18 04:00 98.3 F 63 16 102/63 98 10/20/18 23:40 98.5 F 86 16 117/76 100 Weight Admit Weight 146 lb 11.2 oz Weight 159 lb 1.6 oz Most Recent Monitor Data Heart Rate from ECG 87 NIBP 110/81 NIBP BP-Mean 90 Respiration from ECG 26 SpO2 97 I&O: 10/20/18 10/21/18 10/22/18 06:59 06:59 06:59 Intake Total 8025.0 2943 Output Total 1940 2450 Balance 6085.0 493 Result Diagrams: 10/21/18 08:34 10/21/18 08:34 Additional Labs: Accuchecks 10/21/18 10/20/18 10/20/18 05:49 23:46 20:08 POC Glucose 404 H 412 H 497 H 10/20/18 10/20/18 16:34 11:08 POC Glucose 394 H 336 H Phys Exam - Physical Examination Constitutional: NAD HEENT: PERRLA, moist MMs, sclera anicteric Neck: no nodes, no JVD, supple Respiratory: no wheezing, no rales, no rhonchi Cardiovascular: RRR, no significant murmur, no rub Gastrointestinal: soft, non-tender, no distention, positive bowel sounds Musculoskeletal: no edema (RUE wound in bandage), pulses present Dx/Plan (1) DKA (diabetic ketoacidoses) Code(s): E13.10 - OTH DIABETES MELLITUS WITH KETOACIDOSIS WITHOUT COMA Status : Acute (2) Hypernatremia Code(s): E87.0 - HYPEROSMOLALITY AND HYPERNATREMIA Status: Acute (3) Hyperchloremia Code(s): E87.8 - OTH DISORDERS OF ELECTROLYTE AND FLUID BALANCE, NEC Status: Acute (4) High anion gap metabolic acidosis Code(s): E87.2 - ACIDOSIS Status: Acute (5) Skin cancer Code(s): C44.90 - UNSPECIFIED MALIGNANT NEOPLASM OF SKIN, UNSPECIFIED Status: Acute - Plan * increase lantus to 25units, cont with ISS for now * encouraged to drink PO water to help correct hypernatremia * BP remains borderline low, will cont 1/2NS for another and DC in AM * labs in AM * cultures negative thus far, wbc count trending down, cont abx * pain controlled * DC plans in 240-48hrs depending on patient condition * case and plan d/w patient at length, he understood and agreed with this plan.
[2018-10-21 14:39] LABS: Anion Gap 11 mmol/L (10-20); BUN (Urea Nitrogen) 14 mg/dL (8.4-25.7); Calc. Creatinine Clearance 92 mL/min (70-130); Calcium 8.5 mg/dL (7.8-10.44); Carbon Dioxide 26 mmol/L (22-29); Chloride 111 mmol/L (98-107); Estimated GFR-MDRD Greater than 90; Glucose 388 mg/dL (70-105); Potassium 4.1 mmol/L (3.5-5.1); Sodium 144 mmol/L (136-145)
[2018-10-21 20:59] LABS: Vancomycin, Trough 8.8 ug/mL
[2018-10-21] MEDS ORDERED: Vancomycin HCl 1.5 GM in Sodium Chloride 0.9% 250 ML 300 ML IVPB SCH (21:15)
[2018-10-22] MEDS: Piperacillin/Tazobactam 3.375 GM in Sodium Chloride 0.9% 100 ML IVPB SCH ×2 (00:04→05:31)
--- NOTE | 2018-10-22 00:16 | EKG ---
Test Reason : Blood Pressure : / mmHG Vent. Rate : 151 BPM Atrial Rate : 151 BPM P-R Int : 128 ms QRS Dur : 070 ms QT Int : 280 ms P-R-T Axes : 082 041 077 degrees QTc Int : 443 ms Sinus tachycardia No STEMI Otherwise normal ECG Confirmed by TITI LIN M.D. ([id number]), non linear editor LYDIA CHUA ([id number] on 10/22/2018 12:15:34 AM Referred By: Confirmed By:TITI LIN M.D.
[2018-10-22 05:23] LABS: #Eosinphils 0.1 thou/uL (0.0-0.7); #Lymphocytes 2.3 thou/uL (1.20-3.40); #Monocytes 0.3 thou/uL (0.11-0.59); #Neutrophils 6.7 thou/uL (1.40-6.50); %Basophils 0.4 % (0.0-1.0); %Eosinophils 0.7 % (0.0-10.0); %Lymphocytes 24.5 % (21.0-51.0); %Monocytes 3.4 % (0.0-10.0); %Neutrophils 70.9 % (42.0-75.0); Hemoglobin A1c 12.5 % (4.0-6.0); Mean Corpuscular HGB CONC 32.2 g/dL (32.0-36.0); Mean Corpuscular Hemoglobin 25.7 pg (27.0-31.0); Mean Platelet Volume 9.4 fL (7.4-10.4); Platelet Count 98 thou/uL (130-400); RBC Distribution Width 15.9 % (11.5-14.5); Red Blood Cell (RBC) Count 4.29 mill/uL (4.70-6.10); White Blood Cell (WBC) Count 9.4 thou/uL (4.8-10.8)
[2018-10-22 05:34] LABS: Phosphorus 2.7 mg/dL (2.3-4.7)
[2018-10-22] MEDS: HumaLOG 300 UNITS/3 ML VIAL SC PRN ×4 (06:23→21:55)
[2018-10-22] MEDS: Insulin Glargine 25 UNITS in Pre-Filled Syringe 1 EACH SC SCH (08:06)
[2018-10-22] MEDS: Sodium Chloride 0.45% 1,000 ML IV SCH (08:06)
[2018-10-22] MEDS: HumaLOG 300 UNITS/3 ML VIAL SC SCH ×3 (08:07→17:32)
[2018-10-22] MEDS: Morphine ER 15 MG TAB PO SCH ×2 (08:07→20:44)
[2018-10-22] MEDS: Famotidine 20 MG TAB PO SCH (08:08)
[2018-10-22] MEDS ORDERED: Vancomycin HCl 1.5 GM in Sodium Chloride 0.9% 250 ML 300 ML IVPB SCH (09:00)
[2018-10-22] MEDS: Insulin Glargine 30 UNITS in Pre-Filled Syringe 1 EACH SC SCH (10:00)
[2018-10-22] MEDS: Heparin 5,000 UNITS/ML VIAL SC SCH ×2 (10:00→20:48)
--- NOTE | 2018-10-22 11:08 | PDOC.PN ---
- Subjective Encounter Start Date: 10/22/18 Encounter Start Time: 11:06 Patient seen and examined, no new issues or complaints. - Objective Resuscitation Status - Order Detail: 10/18/18 23:04 Resuscitation Status Routine Resuscitation Status: FULL: Full Resuscitation Vital Signs & Weight: Vital Signs (12 hours) Temp Pulse Resp BP Pulse Ox 10/22/18 07:50 98.0 F 62 18 111/73 100 Weight Admit Weight 146 lb 11.2 oz Weight 159 lb 1.6 oz Most Recent Monitor Data Heart Rate from ECG 87 NIBP 110/81 NIBP BP-Mean 90 Respiration from ECG 26 SpO2 97 I&O: 10/21/18 10/22/18 10/23/18 06:59 06:59 06:59 Intake Total 2943 1600 Output Total 4268 4984 744 Balance 516 -1346 -800 Result Diagrams: 10/22/18 04:07 10/21/18 13:55 Additional Labs: Accuchecks 10/22/18 10/21/18 10/21/18 06:17 20:18 16:02 POC Glucose 220 H 313 H 338 H 10/21/18 11:06 POC Glucose 356 H Phys Exam - Physical Examination Constitutional: NAD HEENT: PERRLA, moist MMs, sclera anicteric Neck: no nodes, no JVD, supple Respiratory: no wheezing, no rales, no rhonchi Cardiovascular: RRR, no significant murmur, no rub Gastrointestinal: soft, non-tender, no distention, positive bowel sounds Musculoskeletal: no edema, pulses present Dx/Plan (1) DKA (diabetic ketoacidoses) Code(s): E13.10 - OTH DIABETES MELLITUS WITH KETOACIDOSIS WITHOUT COMA Status : Acute (2) Hypernatremia Code(s): E87.0 - HYPEROSMOLALITY AND HYPERNATREMIA Status: Acute (3) Hyperchloremia Code(s): E87.8 - OTH DISORDERS OF ELECTROLYTE AND FLUID BALANCE, NEC Status: Acute (4) High anion gap metabolic acidosis Code(s): E87.2 - ACIDOSIS Status: Acute (5) Skin cancer Code(s): C44.90 - UNSPECIFIED MALIGNANT NEOPLASM OF SKIN, UNSPECIFIED Status: Acute - Plan * DC vanc and zosyn, repeat blood culture, start keflex * labs in AM * increase insulin to 30units starting tmrw * if sugars better controlled will DC in AM, will need to follow up with [facility] for further care * case and plan d/w patient at length, he understood and agreed with this plan
[2018-10-22] MEDS: HYDROcodone/Acetaminophen 10/325 mg Tablet PO PRN (11:42)
[2018-10-22] MEDS: Cephalexin 250 MG CAP PO SCH ×2 (11:43→19:21)
[2018-10-23] MEDS: Cephalexin 250 MG CAP PO SCH ×5 (00:01→23:20)
[2018-10-23] MEDS: Morphine 2 MG/ML SYRINGE SLOW IVP PRN (00:01)
[2018-10-23] MEDS: HYDROcodone/Acetaminophen 10/325 mg Tablet PO PRN ×3 (00:03→17:32)
[2018-10-23] MEDS: Zolpidem Tartrate 5 MG TAB PO PRN ×2 (00:04→23:22)
[2018-10-23] MEDS: HumaLOG 300 UNITS/3 ML VIAL SC PRN ×4 (05:21→20:59)
[2018-10-23 05:35] LABS: #Eosinphils 0.1 thou/uL (0.0-0.7); #Monocytes 0.4 thou/uL (0.11-0.59); #Neutrophils 5.5 thou/uL (1.40-6.50); %Basophils 0.6 % (0.0-1.0); %Lymphocytes 25.4 % (21.0-51.0); %Monocytes 4.7 % (0.0-10.0); %Neutrophils 68.2 % (42.0-75.0); Hemoglobin 11.3 g/dL (14.0-18.0); Mean Corpuscular HGB CONC 31.4 g/dL (32.0-36.0); Mean Corpuscular Volume 79.4 fL (78.0-98.0); Mean Platelet Volume 9.7 fL (7.4-10.4); Platelet Count 96 thou/uL (130-400); RBC Distribution Width 15.6 % (11.5-14.5); Red Blood Cell (RBC) Count 4.51 mill/uL (4.70-6.10)
[2018-10-23 06:03] LABS: Anion Gap 12 mmol/L (10-20); BUN (Urea Nitrogen) 10 mg/dL (8.4-25.7); Calc. Creatinine Clearance 116 mL/min (70-130); Calcium 9.8 mg/dL (7.8-10.44); Carbon Dioxide 27 mmol/L (22-29); Chloride 106 mmol/L (98-107); Estimated GFR-MDRD Greater than 90; Glucose 304 mg/dL (70-105); Potassium 4.3 mmol/L (3.5-5.1); Sodium 141 mmol/L (136-145)
[2018-10-23] MEDS: Morphine ER 15 MG TAB PO SCH ×2 (08:14→20:57)
[2018-10-23] MEDS: Famotidine 20 MG TAB PO SCH (08:16)
[2018-10-23] MEDS: Heparin 5,000 UNITS/ML VIAL SC SCH ×2 (08:16→20:58)
[2018-10-23] MEDS: Insulin Glargine 30 UNITS in Pre-Filled Syringe 1 EACH SC SCH (08:17)
[2018-10-23] MEDS: HumaLOG 300 UNITS/3 ML VIAL SC SCH ×3 (08:21→17:27)
[2018-10-23] MEDS ORDERED: Magnesium 2 GM/50 ML 2 GM in Premix Bag 1 BAG IVPB SCH (09:45)
--- NOTE | 2018-10-23 10:56 | PDOC.PN ---
- Subjective Encounter Start Date: 10/23/18 Encounter Start Time: 10:56 Patient seen and examined, no new issues. - Objective Resuscitation Status - Order Detail: 10/18/18 23:04 Resuscitation Status Routine Resuscitation Status: FULL: Full Resuscitation Vital Signs & Weight: Vital Signs (12 hours) Temp Pulse Resp BP Pulse Ox 10/23/18 07:44 98.1 F 95 16 115/72 99 10/23/18 04:06 94 L Weight Admit Weight 146 lb 11.2 oz Weight 159 lb 1.6 oz Most Recent Monitor Data Heart Rate from ECG 87 NIBP 110/81 NIBP BP-Mean 90 Respiration from ECG 26 SpO2 97 I&O: 10/22/18 10/23/18 10/24/18 06:59 06:59 06:59 Intake Total 1600 1928 Output Total 4225 1050 Balance -2625 878 Result Diagrams: 10/23/18 05:19 10/23/18 05:19 Additional Labs: Accuchecks 10/23/18 10/22/18 10/22/18 05:18 21:54 16:14 POC Glucose 283 H 320 H 446 H 10/22/18 11:41 POC Glucose 371 H Phys Exam - Physical Examination Constitutional: NAD HEENT: PERRLA, moist MMs, sclera anicteric Neck: no nodes, no JVD, supple Respiratory: no wheezing, no rales, no rhonchi Cardiovascular: RRR, no significant murmur, no rub Gastrointestinal: soft, non-tender, no distention Musculoskeletal: no edema, pulses present Dx/Plan (1) DKA (diabetic ketoacidoses) Code(s): E13.10 - OTH DIABETES MELLITUS WITH KETOACIDOSIS WITHOUT COMA Status : Acute (2) Hypernatremia Code(s): E87.0 - HYPEROSMOLALITY AND HYPERNATREMIA Status: Acute (3) Hyperchloremia Code(s): E87.8 - OTH DISORDERS OF ELECTROLYTE AND FLUID BALANCE, NEC Status: Acute (4) High anion gap metabolic acidosis Code(s): E87.2 - ACIDOSIS Status: Acute (5) Skin cancer Code(s): C44.90 - UNSPECIFIED MALIGNANT NEOPLASM OF SKIN, UNSPECIFIED Status: Acute - Plan * blood sugars continue to spike up to above 400s * will increase AC insulin to 7units, cont with basal insulin at 25 units, increase to aggressive sliding scale * cultures pending * no other changes in plan of care * case and plan d/w patient at length, he understood and agreed with this plan
[2018-10-23] MEDS: Magnesium Oxide 400 MG TAB PO SCH ×2 (13:46→20:58)
[2018-10-24] MEDS: HumaLOG 300 UNITS/3 ML VIAL SC PRN ×3 (06:12→17:28)
[2018-10-24] MEDS: Cephalexin 250 MG CAP PO SCH ×3 (06:38→17:30)
[2018-10-24 07:50] VITALS: BP 92/60; TEMP 98.5
[2018-10-24] MEDS: Famotidine 20 MG TAB PO SCH (09:30)
[2018-10-24] MEDS: Morphine ER 15 MG TAB PO SCH (09:31)
[2018-10-24] MEDS: Insulin Glargine 30 UNITS in Pre-Filled Syringe 1 EACH SC SCH (09:32)
[2018-10-24] MEDS: Heparin 5,000 UNITS/ML VIAL SC SCH (09:33)
[2018-10-24] MEDS: HumaLOG 300 UNITS/3 ML VIAL SC SCH ×3 (09:33→17:26)
[2018-10-24] MEDS: Magnesium Oxide 400 MG TAB PO SCH (09:35)
[2018-10-24] MEDS: HYDROcodone/Acetaminophen 10/325 mg Tablet PO PRN ×2 (09:38→16:37)
[2018-10-24 10:19] LABS: #Eosinphils 0.1 thou/uL (0.0-0.7); #Lymphocytes 1.3 thou/uL (1.20-3.40); #Monocytes 0.6 thou/uL (0.11-0.59); %Basophils 0.5 % (0.0-1.0); %Eosinophils 0.9 % (0.0-10.0); %Lymphocytes 14.4 % (21.0-51.0); %Monocytes 6.2 % (0.0-10.0); Hemoglobin 10.7 g/dL (14.0-18.0); Mean Corpuscular HGB CONC 32.3 g/dL (32.0-36.0); Mean Corpuscular Hemoglobin 25.5 pg (27.0-31.0); Mean Corpuscular Volume 79.2 fL (78.0-98.0); Mean Platelet Volume 9.4 fL (7.4-10.4); Platelet Count 138 thou/uL (130-400); RBC Distribution Width 15.5 % (11.5-14.5); Red Blood Cell (RBC) Count 4.21 mill/uL (4.70-6.10)
[2018-10-24 10:48] LABS: Anion Gap 13 mmol/L (10-20); BUN (Urea Nitrogen) 11 mg/dL (8.4-25.7); Calc. Creatinine Clearance 118 mL/min (70-130); Calcium 9.6 mg/dL (7.8-10.44); Carbon Dioxide 27 mmol/L (22-29); Chloride 102 mmol/L (98-107); Estimated GFR-MDRD Greater than 90; Glucose 397 mg/dL (70-105); Potassium 3.8 mmol/L (3.5-5.1); Sodium 138 mmol/L (136-145)
[2018-10-24] MEDS ORDERED: Magnesium 2 GM/50 ML 2 GM in Premix Bag 1 BAG IVPB SCH (14:30)
[2018-10-24] MEDS ORDERED: Magnesium Sulfate 4 GM in Sodium Chloride 0.9% 250 ML 250 ML IVPB SCH (15:00)
--- NOTE | 2018-10-25 11:06 | DIS ---
DATE OF ADMISSION: 10/18/2018 DATE OF DISCHARGE: 10/24/2018 DISCHARGE DIAGNOSES: As of the followin. Diabetic ketoacidosis. 2. Hypernatremia. 3. Hyperchloremia. 4. High anion gap metabolic acidosis. HOSPITAL COURSE: The patient is a 53-year-old male with a history of some sort of sarcoma, who presented to the hospital with altered mental status. The patient at this time was found to have significantly elevated blood sugar. The patient initially also was treated with broad-spectrum antibiotics for possible infectious process. The patient was initially admitted into the [facility] and was put on an insulin drip for a DKA. The patient continued to improve throughout the hospital course. The patient was discharged home with insulin and asked to follow up with [facility] for treatment of his right arm sarcoma. HOME MEDICATIONS: As of the followin. Carvedilol 12.5 b.i.d. 2. Tylenol 3 one tab q.6 hours p.r.n. 3. Keflex 250 mg q.6 hours for next 2-3 doses. 4. Insulin 70/30, 50 units b.i.d. 5. Philo 1 q.6 hours p.r.n. 6. Morphine 15 mg b.i.d. 7. Aspirin 81 mg daily. PHYSICAL EXAMINATION: VITAL SIGNS: 98.5, 100, 16, 96% on room air, blood pressure 92/60. GENERAL: He is awake, alert, and oriented x3. Does not appear in distress. CV: S1, S2 present. No murmurs, rubs, or gallops. ABDOMEN: Soft and nontender. Bowel sounds are present x2. EXTREMITIES: No edema. 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 He stated that he has had a biopsy done and is waiting for results, however. He also states that he is unable to get any treatment until his insurance kicks in and he follows up with [facility] for this. The patient on discharge continued to have some elevated sugars; however, he was asked to follow up with his PCP and also had provided this patient with Novolin regular insulin for sliding-scale. Also, prescription for a blood sugar machine also was provided to this patient. Job ID: [id number]
--- NOTE | 2018-10-26 05:13 | PQF ---
"[facility] [employer] Reports Winform Viewer GONZALOAMBREEN ROHAN [id number] JANICE MORRISON [id number] CLINICAL DOCUMENTATION CLARIFICATION FORM: POST DISCHARGE Addendum to original discharge summary date: ____ Late entry note date: __ DATE: 10/26/18 ATTN: William Cook Please exercise your independent, professional judgment in responding to the clarification form. Clinical indicators are provided on the bottom of this form for your review Can you please specify whether Sepsis is ruled in or ruled out during this encounter? Sepsis [ ] Ruled in diagnosis [ ] Continue to treat [ ] Resolved [ ] Ruled out diagnosis [ ] Cannot rule out diagnosis [ ] Other diagnosis please specify: [ ] Unable to determine For continuity of documentation, please document condition throughout progress notes and discharge summary. Thank You. CLINICAL INDICATORS - SIGNS / SYMPTOMS / LABS H and P pg.1 10/18- he is found with severe hyperglycemia, acute kidney failure, encephalopathy, and sepsis type of picture and this is why he was given antibiotic therapy H and P pg.2 10/18- EKG showing sinus tachycardia H and P pg.2 10/18- WBC 23.3, Lactic Acid 3.5 H and P pg.3 10/18- Lactic acidosis, likely due to sepsis H and P pg.2 10/18- acute metabolic and septic encephalopathy H and P pg.3 10/18- Sepsis with acute organ dysfunction. We will continue vancomycin and Zosyn as per renally adjusted dose. Consult 10/[address] Tabares- blood culture x2 are remarkable Consult 10/[address] Maldonado- Assessment: Leukocytosis, rule out infection Microbiology 10/18- Blood culture Coagulase Neg Staphylococcus RISK FACTORS Metabolic Encephalopathy- H and P pg.1 Diabetic ketoacidosis- H and P pg.2 Acute kidney injury- H and P pg.1 TREATMENTS Blood Culture- Microbiology Urine Culture- Microbiology Vancomycin 1gm IV- MAR Piperacillin/Zosyn 4.5gm ROUTE STK-MED- MAR IV fluids- MAR (This form is maintained as a part of the permanent medical record) 2014 [employer]. All Rights Reserved Balwinder [email or web address] [not provided] MTDD"
== END 2018-10-24 19:50 | disposition home or self-care (01) | DRG 637 ==
LOC: ERS 20:44 → ERHOLD 22:15 → IMCU/EMU 10-19 04:54 → ONC 10-20 14:06
PROVIDERS: ADMIT Internal Medicine; ATTEND Internal Medicine
DX: E11.00 Type 2 diabetes mellitus with hyperosmolarity without nonketotic hyperglycemic-hyperosmolar coma (NKHHC) (principal); G93.41 Metabolic encephalopathy; N17.9 Acute kidney failure, unspecified; E87.0 Hyperosmolality and hypernatremia; E86.0 Dehydration; E87.8 Other disorders of electrolyte and fluid balance, not elsewhere classified; C44.602 Unspecified malignant neoplasm of skin of right upper limb, including shoulder; I12.9 Hypertensive chronic kidney disease with stage 1 through stage 4 chronic kidney disease, or unspecified chronic kidney disease; E11.22 Type 2 diabetes mellitus with diabetic chronic kidney disease; E11.65 Type 2 diabetes mellitus with hyperglycemia; N18.2 Chronic kidney disease, stage 2 (mild); Z79.82 Long term (current) use of aspirin; Z79.899 Other long term (current) drug therapy
CPT/HCPCS: 36415; 36416; 51702; 70450; 71045; 80048; 80053; 80202; 80306; 80307; 81003; 81015; 82010; 82550; 82553; 83036; 83605; 83735; 84100; 84484; 85025; 87040; 87086; 87149; 90471; 90670; 93005; 96365; 96366; 96367; G0009; J1644; J1815; J1825; J2270; J2543; J3370; J3475; J3480; J3490; J7050; S0028